=== PATIENT | female | born 1990 | race Caucasian/White ===

== ENCOUNTER 2025-01-22 10:52 | Emergency (ER) | payer MEDICAID ==
[~2025-01-22] VITALS: Ht 165.1 cm; Wt 72.0 kg
[2025-01-22 10:52] VITALS: O2SAT 98
[2025-01-22 10:58] VITALS: BP 136/81; PULSE 97; RESP 16; TEMP 36.8; O2SAT 99
[2025-01-22 11:19] LABS: CLARITY URINE CLEAR (CLEAR); COLOR URINE YELLOW (YELLOW); GLUCOSE URINE NEGATIVE (NEGATIVE); KETONES URINE TRACE (NEGATIVE); LEUKOCYTE ESTERASE URINE NEGATIVE (NEGATIVE); NITRITE URINE NEGATIVE (NEGATIVE); OCCULT BLOOD URINE NEGATIVE (NEGATIVE); PROTEIN URINE NEGATIVE (NEGATIVE); SPECIFIC GRAVITY URINE 1.022 (1.005-1.030); UROBILINOGEN URINE 0.2 E.U./dL (0.2-1.0)
[2025-01-22] MEDS: CEFTRIAXONE SODIUM 500MG VIAL IM ONE (11:39)
[2025-01-22] MEDS: LIDOCAINE HCL 1% 20ML VIAL INFIL ONE (11:40)
[2025-01-22] MEDS: PENICILLIN G BENZATHINE 2,400,000 UNITS/4ML SYR IM ONE (11:57)
[2025-01-22 14:53] LABS: *AMPHETAMINES SCREEN URINE PRESUMPTIVE POSITIVE (NEGATIVE); *BARBITURATES SCREEN URINE NEGATIVE (NEGATIVE); *BENZODIAZEPINES SCREEN URINE NEGATIVE (NEGATIVE)
[2025-01-22 14:54] LABS: *COCAINE SCREEN URINE NEGATIVE (NEGATIVE); CANNABINOID URINE SCREEN PRESUMPTIVE POSITIVE (NEGATIVE); ECSTASY MDMA SCREEN URINE CONF.TEST INDICATED (NEGATIVE); METHADONE URINE SCREEN NEGATIVE (NEGATIVE); OPIATES URINE SCREEN NEGATIVE (NEGATIVE); PHENCYCLIDINE URINE SCREEN NEGATIVE (NEGATIVE)
[2025-01-25 05:09] LABS: CHLAMYDIA TRACHOMATIS NAA Negative (Negative); NEISSERIA GONORRHOEAE NAA Negative (Negative)
== END 2025-01-22 14:23 | disposition left against medical advice (07) ==
LOC: ER 10:52
DX: Z11.3 Encounter for screening for infections with a predominantly sexual mode of transmission (principal); Z79.899 Other long term (current) drug therapy
CPT/HCPCS: 87491; 87591; 80305; 81003; 96372; 99284; J0696; J3490; J0561; Z7610